=== PATIENT | female | born 1975 | race Caucasian/White ===

== ENCOUNTER 2018-12-22 21:45 | Emergency (ER) | payer OTHER ==
[~2018-12-22] VITALS: Ht 188 cm; Wt 145.8 kg
[~2018-12-22 21:45] MED LIST: IBUP-1542 PO
[2018-12-22 21:47] VITALS: BP 146/68; PULSE 105; RESP 19; Ht 188 cm; Wt 145.8 kg
[2018-12-23] MEDS ORDERED: BENZ200C68 PO (01:09)
[2018-12-23] MEDS ORDERED: AZIT250T PO (01:09)
[2018-12-23] MEDS ORDERED: D-ME473S2 PO (01:09)
--- NOTE | 2018-12-23 02:20 | ERD ---
ER Documentation Chief Complaint Chief Complaint COUGH WITH CONGESTION X6DAYS HPI 43-year-old female presenting to the emergency department complaining of productive cough for the past 6 days. She took Mucinex at home without significant relief. Symptoms are worse at nighttime and moderate in severity. She denies any sick contacts. No other symptoms reported at this time. ROS All systems reviewed and are negative except as per history of present illness. Medications Home Meds Active Scripts Azithromycin* (Zithromax*) 250 Mg Tablet, 250 MG PO .ZPACK DIRECTED, #6 TAB TAKE 500 MG (2 TABS) THE FIRST DAY THEN 250 MG (1 TAB) DAYS 2-5 Prov:SAVAGE BARROW PA-C 12/23/18 Benzonatate* (Benzonatate*) 200 Mg Capsule, 200 MG PO TID PRN for COUGH, #15 CAP Prov:SAVAGE BARROW PA-C 12/23/18 Dextromethorphan Hb-Promethazine Hcl* (Promethazine DM* Syrup) 473 Ml Syrup, 5 ML PO Q6 PRN for COUGH, #100 ML Prov:SAVAGE BARROW PA-C 12/23/18 Ibuprofen* (Motrin*) 600 Mg Tab, 600 MG PO Q6, #30 TAB Prov:BLAYNE WEAVER 08/21/16 Reported Medications [None ] No Conflict Check 09/08/13 Allergies Allergies: Coded Allergies: No Known Allergy (Verified , 12/01/13) PMhx/Soc Anesthesia Reaction: No Hx Neurological Disorder: No Hx Respiratory Disorders: No Hx Cardiac Disorders: No Hx Psychiatric Problems: No Hx Miscellaneous Medical Probl: Yes (Diverticulosis) Hx Alcohol Use: No Hx Substance Use: No Hx Tobacco Use: No Smoking Status: Never smoker FmHx Family History: No diabetes Physical Exam Vitals Vital Signs Date Temp Pulse Resp B/P (MAP) Pulse Ox O2 O2 Flow FiO2 Time Delivery Rate 12/22/18 98.9 105 19 146/68 99 21:47 (94) Physical Exam Const: No acute distress Head: Atraumatic Eyes: Normal Conjunctiva ENT: Normal External Ears, Nose and Mouth. Neck: Full range of motion. No meningismus. Resp: Clear to auscultation bilaterally Cardio: Regular rate and rhythm, no murmurs Skin: No petechiae or rashes Ext: No cyanosis, or edema Neur: Awake and alert Psych: Normal Mood and Affect Procedures/MDM 43-year-old female presenting to the emergency department with signs and symptoms most consistent with acute bronchitis, possible bacterial etiology. No evidence to suggest pneumonia, sepsis, meningitis, or other emergencies. Patient stable and appropriate for discharge and further treatment as an ou tpatient. The patient agreed with the diagnosis, plan, need for follow-up, return precautions. Patient's blood pressure was elevated (>120/80) but appears stable without evidence of hypertension emergency or urgency. The patient is to follow-up and pursue outpatient monitoring and therapy with their primary care physician within 1 week and return immediately if they have any new, worsening, or concerning symptoms. Departure Diagnosis: Primary Impression: Acute bronchitis Bronchitis organism: unspecified organism Qualified Codes: J20.9 - Acute bronchitis, unspecified Condition: Fair Patient Instructions: Bronchitis, Antiobiotic Treatment (Adult) Referrals: [facility] YOU HAVE RECEIVED A MEDICAL SCREENING EXAM AND THE RESULTS INDICATE THAT YOU DO NOT HAVE A CONDITION THAT REQUIRES URGENT TREATMENT IN THE EMERGENCY DEPARTMENT. FURTHER EVALUATION AND TREATMENT OF YOUR CONDITION CAN WAIT UNTIL YOU ARE SEEN IN YOUR DOCTORS OFFICE WITHIN THE NEXT 1-2 DAYS. IT IS YOUR RESPONSIBILITY TO MAKE AN APPOINTMENT FOR FOLOW-UP CARE. IF YOU HAVE A PRIMARY DOCTOR --you should call your primary doctor and schedule an appointment IF YOU DO NOT HAVE A PRIMARY DOCTOR YOU CAN CALL OUR PHYSICIAN REFERRAL HOTLINE AT IF YOU CAN NOT AFFORD TO SEE A PHYSICIAN YOU CAN CHOSE FROM THE FOLLOWING [facility] [id number] [facility] [address] [facility] [facility] [address] [facility] [facility] [address] [facility]. [facility] [address] [facility]. [facility]. [address] Additional Instructions: Call your primary care doctor TOMORROW for an appointment during the next 1-2 days.See the doctor sooner or return here if your condition worsens before your appointment time. SAVAGE BARROW PA-C Dec 23, 2018 02:20
== END 2018-12-23 01:39 | disposition home or self-care (01) ==
LOC: FTE 21:45
DX: J20.9 Acute bronchitis, unspecified (principal)
CPT/HCPCS: 99283

== ENCOUNTER 2019-08-05 06:02 | Emergency (ER) | payer OTHER ==
[~2019-08-05] VITALS: Ht 188 cm; Wt 146.9 kg
[~2019-08-05 06:02] MED LIST changes: +AZIT250T PO; +BENZ200C68 PO; +D-ME473S2 PO; +FLUC150T PO; +MICO100S4 VG; +NITR-58 PO
[2019-08-05 06:06] VITALS: BP 155/89; PULSE 85; RESP 18; Ht 188 cm; Wt 146.9 kg
== END 2019-08-05 07:34 | disposition home or self-care (01) ==
LOC: FTE 06:02
DX: N76.0 Acute vaginitis (principal); N39.0 Urinary tract infection, site not specified
CPT/HCPCS: 81003; 81025; 87591; Z7502; 99283